=== PATIENT | female | born 1980 | race African-American/Black ===

== ENCOUNTER 2018-07-23 08:42 | Emergency (ER) | payer BC ==
[~2018-07-23] VITALS: Ht 167.6 cm; Wt 93.0 kg
[2018-07-23 09:02] LABS: URINE BILIRUBIN NEGATIVE (Negative); URINE BLOOD TRACE (Negative); URINE CLARITY CLEAR; URINE COLOR YELLOW; URINE GLUCOSE-RANDOM* NEGATIVE (Negative); URINE KETONES NEGATIVE (Negative); URINE LEUKOCYTES-REFLEX NEGATIVE (Negative); URINE NITRITE-REFLEX NEGATIVE (Negative); URINE PROTEIN (DIPSTICK) NEGATIVE (Negative); URINE SPECIFIC GRAVITY >= 1.030 (1.005-1.035); URINE UROBILINOGEN 0.2 E.U./dl (0.2-1.0)
[2018-07-23] MEDS ORDERED: DOXYCYCLINE 10100 MG PO (10:05)
[2018-07-23] MEDS ORDERED: DIFLUCAN150 MG PO (10:05)
[2018-07-23 10:10] VITALS: BP 129/78
== END 2018-07-23 10:27 | disposition home or self-care (01) ==
LOC: ER 08:42
PROVIDERS: Emergency Medicine
DX: N73.9 Female pelvic inflammatory disease, unspecified (principal); N94.10 Unspecified dyspareunia; N89.8 Other specified noninflammatory disorders of vagina; F17.210 Nicotine dependence, cigarettes, uncomplicated